=== PATIENT | male | born 1975 | race Caucasian/White ===

== ENCOUNTER 2018-01-17 10:17 | Emergency (ER) | payer SELFPAY ==
[2018-01-17 10:49] VITALS: BMI 23.7
--- NOTE | 2018-01-17 11:21 | PDOC ---
History of Present Illness - General Chief Complaint: Pain, Acute Stated Complaint: PAIN Time Seen by Provider: 01/17/18 11:20 - History of Present Illness Initial Comments: 01/17/18 13:02 The patient is a 43 year old male with a history of gallstones who presents for evaluation of abdominal pain. The patient reports that he has a history of gallstones over the past year with intermittent abdominal pain. The patient states that yesterday evening, he began experiencing worsening poorly described abdominal pain, with radiation to his back similar to his gallstone pain. He reported persistent pain prompting his presentation to the ED for further evaluation. He otherwise denies fevers, chills, SOB, chest pain, nausea, vomiting, or changes with urination or bowel movements. Past History - Past Medical History Allergies/Adverse Reactions: Allergies Allergy/AdvReac Type Severity Reaction Status Date / Time No Known Allergies Allergy Verified 01/17/18 10:46 COPD: No - Immunization History Immunization Up to Date: Yes - Suicide/Smoking/Psychosocial Hx Smoking History: Never smoked Number of Cigarettes Smoked Daily: 2 Information on smoking cessation initiated: No Hx Alcohol Use: No Drug/Substance Use Hx: No Substance Use Type: None Review of Systems - Review of Systems Comments:: 01/17/18 13:04 Constitutional: No fevers, chills, fatigue, malaise HEENT: No Rhinorrhea, nasal congestion, visual changes Cardiovascular: No chest pain, syncope, palpitations, lightheadedness Respiratory: No Cough, SOB, Hemoptysis, Gastrointestinal: Abdominal pain. No Nausea, Vomiting, Constipation, Diarrhea, Melena Genitourinary: No Dysuria, Frequency, Urgency, Hesitancy, Hematuria, Flank pain Musculoskeletal: No Myalgia, arthralgia Skin: No rashes, itching, bruising, pallor Neurologic: No Headache, Dizziness, Numbness, Weakness, or Tingling Psychiatric: No Hallucinations. No SI or HI *Physical Exam - Vital Signs Last Vital Signs Temp Pulse Resp BP Pulse Ox 98.0 F 94 H 16 125/87 96 01/17/18 10:46 01/17/18 10:46 01/17/18 10:46 01/17/18 10:46 01/17/18 10:46 - Physical Exam Comments: 01/17/18 13:05 General Appearance: Nourished. No Apparent Distress HEENT: No Pharyngeal Erythema, Tonsillar Exudate, Tonsillar Erythema Neck: No Cervical Lymphadenopathy Respiratory/Chest: Lungs Clear, Normal Breath Sounds. No Crackles, Rales, Rhonchi, Wheezing Cardiovascular: Regular Rhythm, Regular Rate. No Murmur, Gallops, Rubs Gastrointestinal/Abdominal: Normal Bowel Sounds, Soft. No Guarding, Rebound, Tenderness Musculoskeletal: No CVA Tenderness Extremity: Normal Capillary Refill Integumentary: Normal Color, Dry, Warm Neurologic: Fully Oriented, Alert, Normal Mood/Affect, Normal Response, ED Treatment Course - LABORATORY CBC & Chemistry Diagram: 01/17/18 11:45 01/17/18 11:45 Medical Decision Making - Medical Decision Making 01/17/18 13:06 The patient is a 43 year old male with a history of gallstones who presents for evaluation of abdominal pain. Differential includes but is not limited to: Gastritis, Pancreatitis, Cholecystitis, Infectious, Metabolic Derangement. Given the patient's history and physical exam, we will obtain a cbc, cmp, lipase , gallbladder US to evaluate further. We will treat the patient with iv fluids , pepcid, tylenol and continue to monitor and reassess while here in the ED. 01/17/18 16:55 CBC, lipase were unremarkable. CMP demonstrated mild elevations in the LFTs. Gallbladder US demonstrated many gallstones, but no evidence of cholecystitis as read by our radiologist. The patient reports significant improvement in his symptoms and has a normal abdominal exam. We discussed the case with Dr. Cody with Surgery who agrees with outpatient follow up for cholecystectomy. We are comfortable discharging the patient home with surgery follow up. We discussed the results, plan, and return precautions who voiced understanding and is agreeable with the plan. *DC/Admit/Observation/Transfer Diagnosis at time of Disposition: Abdominal pain Qualifiers: Abdominal location: unspecified location Qualified Code(s): R10.9 - Unspecified abdominal pain - Discharge Dispostion Disposition: HOME Condition at time of disposition: Stable Decision to Admit order: No - Referrals Referrals: Leon Estrella MD [Staff Physician] - - Patient Instructions Printed Discharge Instructions: DI for Gallstones Additional Instructions: Please return to the ER if you experience concerning or worsening symptoms including worsening difficulty breathing, weakness, or chest pain, fevers, vomiting, abdominal pain. Your lab results were normal here in the ER. Your ultrasound shows that you have many gallstones which is likely a cause of your symptoms. It is extremely important that you call to schedule a follow up appointment with our surgeon Dr. Estrella to have your gallbladder removed. Please call to schedule a follow up appointment with your primary care provider within 2-3 days to discuss your ER visit and further management of your symptoms. Por favor, regrese a la vinnie de emergencias si experimenta problemas o empeoramiento de los sntomas incluyendo empeoramiento de la dificultad respiratoria, debilidad o dolor en el pecho, fiebres, vmitos, dolor abdominal. Los resultados de tu laboratorio fueron normales aqu en URGENCIAs. Chiang ultrasonido muestra que usted tiene muchos clculos biliares que es probable que sea chris causa de vamshi sntomas. Es extremadamente importante que usted llame para programar chris alondra de seguimiento con nuestro cirujano Dr. Estrella para que le quiten la vescula biliar. Por favor llame para programar chris alondra de seguimiento con chiang proveedor de cuidado primario dentro de los 2-3 valle para discutir chiang visita de URGENCIAs y la administracin de vamshi sntomas. Print Language: TOGOLESE - Post Discharge Activity
[2018-01-17] MEDS ORDERED: ONDANSETRON 4 MG/2 ML VIAL IVPUSH ONE (11:39)
[2018-01-17] MEDS ORDERED: ACETAMINOPHEN 1000 MG/100 ML VIAL (NON FORMULARY) IVPB ONE (11:39)
[2018-01-17] MEDS ORDERED: SODIUM CHLORIDE 1,000 ML IV STA (11:39)
[2018-01-17] MEDS ORDERED: ONDANSETRON 4 MG/2 ML VIAL ONE (11:43)
[2018-01-17] MEDS ORDERED: ACETAMINOPHEN INJECTION 100 ML IVPB ONE (11:43)
[2018-01-17] MEDS ORDERED: FAMOTIDINE 20 MG/50 ML IVPB 20 MG/50 ML MG IVPB ONE ×2 (12:15→12:54)
[2018-01-17 12:23] LABS: BASO % 0.3 % (0-2.0); EOS % 2.2 % (0-4.5); HEMATOCRIT 48.3 % (35.4-49); HEMOGLOBIN 15.9 GM/dL (11.7-16.9); LYMPH % 13.1 % (8-40); MCH 28.4 pg (25.7-33.7); MCHC 32.9 g/dl (32.0-35.9); MEAN CELL VOLUME 86.3 fl (80-96); MEAN PLT VOLUME 7.5 fl (7.5-11.1); MONO % 6.5 % (3.8-10.2); NEUT % 77.9 % (42.8-82.8); PLATELET COUNT 217 K/MM3 (134-434); RDW 13.6 % (11.9-15.9); WHITE BLOOD COUNT 8.6 K/mm3 (4.0-10.0)
[2018-01-17 12:36] LABS: ALBUMIN 3.8 g/dl (3.4-5.0); ALK PHOS 106 U/L (45-117); ANION GAP 7 MMOL/L (8-16); BILIRUBIN,TOTAL 0.8 mg/dL (0.2-1); BLOOD UREA NITROGEN 12 mg/dL (7-18); CHLORIDE 106 mmol/L (98-107); CO2 26 mmol/L (21-32); GLUCOSE,RANDOM 110 mg/dL (74-106); LIPASE 102 U/L (73-393); POTASSIUM 4.1 mmol/L (3.5-5.1); SGOT/AST 175 U/L (15-37); SGPT/ALT 107 U/L (13-61); SODIUM 139 mmol/L (136-145); TOT PROT 7.3 g/dl (6.4-8.2)
--- NOTE | 2018-01-17 13:04 | PDOC ---
Attending Attestation - HPI HPI: 01/17/18 14:21 Patient is a 43 year old male with a significant past medical history of Gallstones, who presents to the ED with complaints of diffuse abdominal pain that began earlier today. Patient reports abdominal pain is an intermittent pain that he states he has experienced multiple times over the years with the most recent being last sunday on January 12. He reports pain began this morning, and subsided over time but returned this afternoon with increased intensity, prompting him to come into the ED for further evaluation. Denies chest pain, Sob. Denies nausea, vomiting. Denies contact with sick individuals, out of state travelling. Denies any other symptoms. Allergies: None Social history: No smoking. No alcohol. No illicit drugs. Surgical history: None PMD: None - Physicial Exam PE: 01/17/18 14:21 Vitals: Triage Vital signs reviewed General Appearance: no acute distress, well nourished well developed Head: Atraumatic Eyes: Pupils equal reactive round, extraocular movement intact Ears: TMs normal bilaterally Nose: Nares patent bilaterally; no nasal congestion Throat: Posterior oropharynx without erythema, mucous membranes moist Neck: Supple; No Nuchal rigidity Chest Wall: Nontender Cardiac: Regular rate and rhythm, no murmurs, no rubs, no gallops Lungs: Clear to auscultation bilateral, good air movement bilaterally Abdomen: Soft, non distended, normal bowel sounds, non tender to palpation Genitourinary: Rectal: Exam deferred Extremities: Full range of motion to all extremities, no cyanosis, clubbing, or edema Skin: Warm and dry, no rashes or lesions, no rash, no petechiae Neuro: AOX3; Cranial Nerves 2-12 grossly intact, Strength intact to all extremities, Sensation intact to all extremities, gait normal Psych: Normal mood, normal affect <Shankar Modi - Last Filed: 01/17/18 14:21> - Resident Resident Name: Lasha Valencia - ED Attending Attestation I have performed the following: I have examined & evaluated the patient, The case was reviewed & discussed with the resident, I agree w/resident's findings & plan, Exceptions are as noted - Medical Decision Making 01/17/18 16:13 Diffuse abdominal discomfort now resolved ultrasound with evidence of gallstones and sludge Very slightly elevated LFTs no evidence of acute cholecystitis no fever no white count no pain on repeat abdominal examination case discussed with surgery determined to be stable for outpatient follow-up. Very strict acute cholecystitis return instructions discussed with patient. Findings, the need for follow-up, strict return instructions discussed with patient. <Chau Gomez - Last Filed: 01/17/18 16:13>
[2018-01-17 16:06] VITALS: BP 123/85; PULSE 68; TEMP 98.6
== END 2018-01-17 16:03 | disposition home or self-care (01) ==
LOC: JER 10:17
PROC: 3E0337Z Introduction of Electrolytic and Water Balance Substance into Peripheral Vein, Percutaneous Approach (ICD-10-PCS; principal; 2018-01-17)
PROC: 3E033GC Introduction of Other Therapeutic Substance into Peripheral Vein, Percutaneous Approach (ICD-10-PCS; 2018-01-17)
PROC: 3E033NZ Introduction of Analgesics, Hypnotics, Sedatives into Peripheral Vein, Percutaneous Approach (ICD-10-PCS; 2018-01-17)
DX: R10.9 Unspecified abdominal pain (principal); K80.20 Calculus of gallbladder without cholecystitis without obstruction; R94.5 Abnormal results of liver function studies
CPT/HCPCS: 36415; 76705-TC; 80053; 83690; 85025; 99283-25; J0131; J7030

== ENCOUNTER 2018-02-05 14:11 | Emergency (ER) | payer OTHER ==
[2018-02-05 14:19] VITALS: TEMP 98.3; BMI 27.5
[2018-02-05] MEDS ORDERED: SODIUM CHLORIDE 1,000 ML IV STA (15:11)
--- NOTE | 2018-02-05 15:19 | PDOC ---
History of Present Illness - General Chief Complaint: Pain Stated Complaint: PAIN, ACUTE Time Seen by Provider: 02/05/18 14:46 History Source: Patient, Family (aunt) Exam Limitations: Language Barrier - History of Present Illness Initial Comments: 02/05/18 15:15 Pt is a 43yo M with PMH of gallstones presenting to ED with complaints of RUQ abdominal pain that started after he ate dinner last night. Pt thinks it is due to gallstones. Per aunt pt started having RUQ abdominal pain associated with an episode of yellow vomitus and pain in the L shoulder. He also had an episode of loose stools that was yellow. Pain was 10/10. Aunt gave pt Tylenol PM which helped the pain and he went to bed. Pain is now 5/5, diffuse abdominal pain, mostly in the RUQ and L shoulder. He had an episode of yellow emesis today and watery stools. He was able to eat today and was able to hold it down. He denies fevers, chills, chest pain, SOB, headaches, bloody stools. He admits to burning sensation with urination and pain radiating to his testicles. PMD: none PMH: none PSH: none Social: denies Allergies: nkda 02/05/18 15:22 Past History - Past Medical History Allergies/Adverse Reactions: Allergies Allergy/AdvReac Type Severity Reaction Status Date / Time No Known Allergies Allergy Verified 02/05/18 14:14 COPD: No - Immunization History Immunization Up to Date: Yes - Suicide/Smoking/Psychosocial Hx Smoking History: Never smoked Number of Cigarettes Smoked Daily: 2 Hx Alcohol Use: No Drug/Substance Use Hx: No Substance Use Type: None Review of Systems - Review of Systems Constitutional: No: Chills, Fever, Weakness HEENTM: No: Symptoms Reported Respiratory: No: Symptoms reported Cardiac (ROS): No: Symptoms Reported ABD/GI: Yes: See HPI, Diarrhea, Nausea, Vomiting, Abdominal cramping. No: Constipated, Rectal Bleeding, Tarry Stools : Yes: Burning, Testicular Pain. No: Incontinence, Testicular Mass, Testicular Swelling Musculoskeletal: Yes: See HPI, Back Pain (L shoulder pain) Integumentary: No: Symptoms Reported Neurological: No: Symptoms reported *Physical Exam - Vital Signs Last Vital Signs Temp Pulse Resp BP Pulse Ox 98.3 F 77 18 118/75 97 02/05/18 14:15 02/05/18 14:15 02/05/18 14:15 02/05/18 14:15 02/05/18 14:15 - Physical Exam General Appearance: Yes: Nourished, Appropriately Dressed. No: Apparent Distress HEENT: positive: EOMI, CAM Neck: positive: Trachea midline, Supple Respiratory/Chest: positive: Lungs Clear, Normal Breath Sounds Cardiovascular: positive: Regular Rhythm, Regular Rate, S1, S2. negative: Edema , JVD, Murmur Vascular Pulses: Carotid (R): 2+, Carotid (L): 2+, Dorsalis-Pedis (R): 2+, Doralis-Pedis (L): 2+ Gastrointestinal/Abdominal: positive: Normal Bowel Sounds, Soft, Tenderness ( epigastric > LUQ > LLQ tenderness. No RUQ or RLQ tenderness. ). negative: Distended, Guarding, Rebound Male Genitalia: positive: normal genitalia, other (normal cremasteric reflex. No lesions or discharge). negative: testicular tenderness, testicular mass, inguinal hernia, hernia Musculoskeletal: positive: Normal Inspection. negative: CVA Tenderness Extremity: positive: Normal Capillary Refill Integumentary: positive: Normal Color, Dry, Warm. negative: Erythema, Rash Neurologic: positive: sign maintenance II-XII NML intact, Fully Oriented, Alert, Normal Mood/ Affect, Normal Response, Motor Strength 5/5 Moderate Sedation - Procedure Monitoring Vital Signs: Procedure Monitoring Vital Signs Temperature 98.3 F 02/05/18 14:15 Pulse Rate 77 02/05/18 14:15 Respiratory Rate 18 02/05/18 14:15 Blood Pressure 118/75 02/05/18 14:15 O2 Sat by Pulse Oximetry (%) 97 02/05/18 14:15 ED Treatment Course - LABORATORY CBC & Chemistry Diagram: 02/05/18 15:45 02/05/18 15:45 Medical Decision Making - Medical Decision Making 02/05/18 15:23 Pt is a 43yo M with PMH of gallstones presenting to ED with complaints of RUQ abdominal pain that started after he ate dinner last night. Per aunt pt started having RUQ abdominal pain associated with an episode of yellow vomitus and pain in the L shoulder. Vitals: wnl PE: LLQ tenderness, epigastric tenderness. normal testicular exam. Negative rosving, psoas signs. Ddx includes but not limited to: cholecystitis, pancreatitis, PUD, pyelonephritis, colitis, appendicitis, Will order ultrasound of RUQ, although not having RUQ pain has history of gallstones. Repeat labs. Labs significant for elevated triglycerides. LFT, alk phos wnl. all other labs wnl. UA negative for infection. U/S showed increased biliary sludge from prior study a few weeks ago. No other changes. Will give pt information for outpt elective surgery. Pt is stable, arranged PMD follow up and given information for surgery. Can be d /c home. Upon d/c pt worried about burning with urination. he said he was sexually active and does not use protection. Added on GC. Pt advised that he will get a call if positive. pt agreed with plan. DC home. *DC/Admit/Observation/Transfer Diagnosis at time of Disposition: Gallstones, Biliary sludge determined by ultrasound Abdominal pain Qualifiers: Abdominal location: unspecified location Qualified Code(s): R10.9 - Unspecified abdominal pain - Discharge Dispostion Disposition: HOME Condition at time of disposition: Good Decision to Admit order: No - Referrals - Patient Instructions Printed Discharge Instructions: DI for Gallstones, DI for Abdominal Pain-Adult Additional Instructions: Te vieron aqu hoy por dolor abdominal. Regina pruebas de laboratorio mostraron chris ligera elevacin en leroy colesterol, daily por lo dems torsten normales. La ecografa muestra que tiene ms lodo en la vescula biliar en comparacin con la ltima vez y muchas piedras. Te recomiendo que empieces a tim a un mdico de atencin primaria para que tengas a alguien que kimmy un seguimiento de tu marion. Hay chris alondra programada para usted en: [place]ef[place], 6 de diciembre a las 10:[address] Baig. Te llamarn para confirmar la alondra. Si contina teniendo problemas con leroy vescula biliar, puede extraerla. Necesita hacer chris alondra con un cirujano general. Aqu hay algunas opciones: Dr. Saeed- Dr. Velazquez- [facility]- Regrese a la vinnie de emergencias si el dolor empeora, comienza a vomitar, no puede comer, tiene fiebre o si aparece algn sntoma nuevo. Eitan You were seen here today for abdominal pain. Your lab tests showed a slight elevation in your cholesterol but they were otherwise normal. The ultrasound shows that you have more sludge in your gallbladder compared to last time and many stones. I recommend you start seeing a primary care doctor so that you have someone to follow up with your health. There is an appointment set up for you on: February 07 at 10:30am with Dr. Baig They will call you to confirm the appointment. If you continue to have problem with your gallbladder, you can get it removed. You need to make an appointment with a general surgeon. Here are some options: Dr. Saeed- Dr. Velazquez- [facility]- Come back to the emergency room if the pain gets worse, you start vomiting, you are unable to eat, you develop fever, or if any new concerning symptom develops. Thank you Print Language: BOLIVIAN - Post Discharge Activity
--- NOTE | 2018-02-05 15:27 | PDOC ---
Attending Attestation - HPI HPI: 02/05/18 15:42 CC: Abdominal pain HPI: The patient is a 43 year old male, with a significant past medical history of gallstones, who presents to the emergency department with, RUQ pain with vomiting and watery stools. He describes his pain as diffusem radiating to the right shoulder, mildly alleviated with Tylenol PM. Allergies: NKA Social History: Nonsmoker. Denies EtOH use and recreational drug use. - Physicial Exam PE: 02/05/18 15:49 Exam: Vitals: Triage Vital signs reviewed General Appearance: no acute distress, well nourished well developed, Head: Atraumatic, normocephalic Abdomen: Diffuse abdominal pain worsened in the epigastrum. Soft, nondistended, normal bowel sounds Rectal: Exam deferred Extremities: Full range of motion to all extremities, no cyanosis, clubbing, or edema Skin: Warm and dry, no rashes or lesions, no petechiae Neuro: AOX3; Cranial Nerves 2-12 grossly intact, Strength intact to all extremities, Sensation intact to all extremities Psych: normal mood, normal affect <Keysha Santoyo - Last Filed: 02/05/18 15:49> - Resident Resident Name: Sudha Carvajal - ED Attending Attestation I have performed the following: I have examined & evaluated the patient, The case was reviewed & discussed with the resident, I agree w/resident's findings & plan, Exceptions are as noted - Medical Decision Making 02/05/18 18:15 Chronic right upper quadrant pain had seen a surgeon but insurance wasn't accepted presents to the ED with similar symptomatology his previous presentations Ultrasound demonstrates no evidence of cholecystitis. Status post GI cocktail patient feels much better. We'll refer to different surgeon and clinic Findings, need for follow-up and strict return instructions discussed with patient. <Chau Gomez - Last Filed: 02/05/18 18:15> Attestations - Attestations 02/05/18 15:42 Documentation prepared by Keysha Santoyo, acting as health care / medical job titles for Chau Gomez MD. <Keysha Santoyo - Last Filed: 02/05/18 15:49>
[2018-02-05] MEDS ORDERED: ACETAMINOPHEN 1000 MG/100 ML VIAL (NON FORMULARY) IVPB ONE (15:32)
[2018-02-05] MEDS ORDERED: FAMOTIDINE 20 MG/50 ML IVPB 20 MG/50 ML MG IVPB ONE ×2 (15:32→15:41)
[2018-02-05] MEDS ORDERED: ACETAMINOPHEN INJECTION 100 ML IVPB ONE (15:40)
[2018-02-05 15:52] LABS: BASO % 0.8 % (0-2.0); HEMATOCRIT 44.3 % (35.4-49); HEMOGLOBIN 15.8 GM/dL (11.7-16.9); MCH 30.3 pg (25.7-33.7); MCHC 35.6 g/dl (32.0-35.9); MEAN PLT VOLUME 7.9 fl (7.5-11.1); MONO % 9.9 % (3.8-10.2); NEUT % 58.3 % (42.8-82.8); PLATELET COUNT 239 K/MM3 (134-434); RBC 5.21 M/mm3 (4.00-5.60); WHITE BLOOD COUNT 5.6 K/mm3 (4.0-10.0)
[2018-02-05 15:54] LABS: URINE APPEARANCE CLEAR; URINE BILIRUBIN NEGATIVE (<2.0 mg/dL); URINE COLOR LTYELLOW; URINE GLUCOSE (UA) NEGATIVE (NEGATIVE); URINE KETONE NEGATIVE (NEGATIVE); URINE LEUK ESTERASE NEGATIVE (NEGATIVE); URINE NITRITE NEGATIVE (NEGATIVE); URINE PROTEIN NEGATIVE (NEGATIVE)
[2018-02-05 16:25] LABS: ALBUMIN 3.8 g/dl (3.4-5.0); ALK PHOS 109 U/L (45-117); ANION GAP 7 MMOL/L (8-16); BILIRUBIN,TOTAL 0.5 mg/dL (0.2-1); BLOOD UREA NITROGEN 13 mg/dL (7-18); CALCIUM 9.1 mg/dL (8.5-10.1); CHLORIDE 105 mmol/L (98-107); CHOLESTEROL 195 mg/dL (50-200); CO2 26 mmol/L (21-32); CREATININE 0.9 mg/dL (0.55-1.3); GLUCOSE,RANDOM 121 mg/dL (74-106); HDL CHOLESTEROL 25 mg/dL (40-60); LIPASE 143 U/L (73-393); POTASSIUM 4.1 mmol/L (3.5-5.1); SGOT/AST 19 U/L (15-37); SGPT/ALT 31 U/L (13-61); SODIUM 138 mmol/L (136-145); TOT PROT 7.4 g/dl (6.4-8.2); TRIGLYCERIDES 175 mg/dL (0-150)
[2018-02-05 18:41] VITALS: BP 120/75; PULSE 78
== END 2018-02-05 19:02 | disposition home or self-care (01) ==
LOC: JER 14:11
PROC: 3E0337Z Introduction of Electrolytic and Water Balance Substance into Peripheral Vein, Percutaneous Approach (ICD-10-PCS; principal; 2018-02-05)
PROC: 3E033GC Introduction of Other Therapeutic Substance into Peripheral Vein, Percutaneous Approach (ICD-10-PCS; 2018-02-05)
PROC: 3E033NZ Introduction of Analgesics, Hypnotics, Sedatives into Peripheral Vein, Percutaneous Approach (ICD-10-PCS; 2018-02-05)
DX: K80.20 Calculus of gallbladder without cholecystitis without obstruction (principal); K83.8 Other specified diseases of biliary tract
CPT/HCPCS: 36415; 76705-TC; 80053; 80061; 81003; 83690; 83721; 85025; 87086; 87491; 87591; 87661; 96361; 96365; 96375; 99282-25; J0131; J7030